=== PATIENT | male | born 1975 | race Caucasian/White ===

== ENCOUNTER 2019-04-19 20:42 | Emergency (ER) | payer OTHER, SELFPAY ==
[2019-04-19 20:43] VITALS: BP 138/81; PULSE 91; RESP 15; TEMP 37.2; BMI 28.1
--- NOTE | 2019-04-19 21:16 | RAD_ITS ---
STUDY: X-RAY - LEFT SHOULDER REASON FOR EXAM: Male, 43 years old. Left shoulder pain after fall. TECHNIQUE: 3 view(s) of the shoulder. COMPARISON: None. FINDINGS: Normal glenohumeral articulation. There are degenerative changes of the acromioclavicular joint. Normal acromion. Normal humeral head and visualized proximal humerus. The soft tissue structures are unremarkable. Normal visualized pulmonary apex. RAD/Shoulder min 2 Views IMPRESSION: Degenerative changes of the acromioclavicular joint. Electronically Signed: Mayra Winn MD at 21:58 EDT Tel , Service support ,
--- NOTE | 2019-04-19 22:21 | RAD_ITS ---
STUDY: X-RAY - BILATERAL RIBS WITH CHEST REASON FOR EXAM: Male, 43 years old. Fall. TECHNIQUE - RIBS: 8 view(s) of the ribs. TECHNIQUE - CHEST: PA COMPARISON: None. FINDINGS - RIBS : Normal visualized ribs without a demonstrated fracture. FINDINGS - CHEST: The lungs are clear and expanded. There is no demonstrated pleural abnormality. Normal size heart. Normal mediastinum and sushil. Normal visualized pulmonary arteries. Normal visualized aortic arch and descending thoracic aorta. Normal visualized thoracic spine. Normal visualized ribs, clavicles, and shoulders. There is no demonstrated abnormality of the visualized soft tissue structures of the upper abdomen. RAD/Ribs Emmett Min 4V w/PA Chest IMPRESSION: RIBS: Normal x-ray examination of the bilateral ribs. CHEST: Normal x-ray examination of the chest. Electronically Signed: Mayra Winn MD at 23:11 EDT Tel , Service support ,
--- NOTE | 2019-04-19 22:26 | ED.DCSUM_ITS ---
- ER Visit Summary Date of Service: 04/19/19 Chief Complaint: Left shoulder pain History of Present Illness: The patient is a 43 M presenting with left shoulder injury. Patient was playing hockey. He states he was skating at high-speed with another player. He crashed into the wall. He hit his left shoulder. He complains of left-sided neck pain and left shoulder pain. He also complains of right lower rib pain. He believes he hit his head but did not lose consciousness. No amnesia to the event. No vomiting. He is not on anticoagulants. He denies headache. Denies other complaints. Physical Examination: Vitals are stable. Patient is afebrile. Alert no acute distress. HEENT exam is unremarkable. Neck is left paraspinal cervical muscle tenderness with no midline tenderness. No step-off Lungs are clear and equal bilaterally. Right lower chest wall tenderness with n o crepitus Heart is regular rate and rhythm. Abdomen is soft nontender nondistended. No guarding or rebound Extremities left posterior shoulder tenderness, pain with abduction of left upper extremity. Normal distal pulse. Skin is warm and dry. No focal neurologic deficit. Remainder of exam is unremarkable. Emergency Department Course and Treatment: Patient was given Flexeril. Left shoulder x-ray shows degenerative changes. Left clavicle x-ray shows no fracture. Bilateral rib x-ray shows no acute process. Patient continues to have pain but declined additional pain medication. He was given a sling. He is advised to follow-up with orthopedics. Advised return to ED if worsening complaints. Disposition: Discharge home Impression: Left shoulder sprain This note was generated with [employer] dictation software. It may contain incorrect words, spelling, and punctuation that were not noted in review of the chart prior to signing ED Disposition - Plan for ED Patient: Disposition: Home or Assisted Living Instructions: ED Sprain Shoulder Prescriptions: RX: Naproxen [Naprosyn] 500 mg PO BID PRN #20 tablet cycloBENZAPRine HCl [Flexeril] 10 mg PO TID PRN #20 tablet PRN Reason: Muscle Spasm Referrals: Luan Childers DO [STAFF PHYSICIAN] - Cindy Keene NP-C [Primary Care Provider] -
[2019-04-19] MEDS: cycloBENZAPRine HCl 10 MG Tablet PO (22:37)
--- NOTE | 2019-04-19 22:45 | RAD_ITS ---
STUDY: X-RAY - LEFT CLAVICLE REASON FOR EXAM: Male, 43 years old. Fall TECHNIQUE: 2 view(s) of the clavicle. COMPARISON: None. FINDINGS: Normal clavicle. There are mild degenerative changes of the acromioclavicular articulation. Normal visualized sternoclavicular articulation. Normal visualized pulmonary apex. RAD/Clavicle IMPRESSION: No acute fracture. Mild degenerative changes of the acromioclavicular joint. Electronically Signed: Mayra Winn MD at 23:09 EDT Tel , Service support ,
--- NOTE | 2019-04-19 23:54 | ED.DEP ---
ED Disposition - Plan for ED Patient: Instructions: ED Sprain Shoulder Prescriptions: Naproxen [Naprosyn] 500 mg PO BID PRN #20 tablet cycloBENZAPRine HCl [Flexeril] 10 mg PO TID PRN #20 tablet PRN Reason: Muscle Spasm Referrals: Cindy Keene, WIL[employer] PROFESSOR-C [Primary Care Provider] -
--- NOTE | 2019-04-20 00:12 | ED.DEP ---
ED Disposition - Plan for ED Patient: Instructions: ED Sprain Shoulder Prescriptions: Naproxen [Naprosyn] 500 mg PO BID PRN #20 tablet cycloBENZAPRine HCl [Flexeril] 10 mg PO TID PRN #20 tablet PRN Reason: Muscle Spasm Referrals: Cindy Keene, DANILO-C [Primary Care Provider] - Luan Childers DO [STAFF PHYSICIAN] -
[2019-04-20 00:17] VITALS: PULSE 80; RESP 16; O2SAT 100
== END 2019-04-20 00:18 | disposition home or self-care (01) ==
LOC: ED 23:00
PROVIDERS: Emergency Provider Emergency Medicine; Family Provider Nurse Practitioner Family; PCP Nurse Practitioner Family
DX: S43.402A Unspecified sprain of left shoulder joint, initial encounter (principal); W22.8XXA Striking against or struck by other objects, initial encounter; Y93.22 Activity, ice hockey; Y92.39 Other specified sports and athletic area as the place of occurrence of the external cause; Y99.8 Other external cause status
CPT/HCPCS: 71111; 73000; 73030; 99283